=== PATIENT | female | born 1975 | race Hispanic/Latino ===

== ENCOUNTER 2022-12-20 14:51 | Emergency (ER) | payer OTHER ==
[2022-12-20 15:42] LABS: Hematocrit 42.2 % (36.0-45.0); Lymphocytes % 29.9 % (15.3-44.8); MCV 88.6 fL (80-100); MPV 9.4 fL (7.6-11.3); RBC Red Blood Cell Count 4.76 M/uL (3.86-4.86)
[2022-12-20 15:52] LABS: BUN Blood Urea Nitrogen 11 mg/dL (7-18); Bicarbonate 31 mEq/L (21-32); Glomerular Filtration Rate 110 ml/min (=/>90); Glucose Level 92 mg/dL (74-106); Sodium Level 139 mEq/L (136-145)
[2022-12-20 15:53] LABS: Troponin High Sensitivity < 3.0 pg/mL (<58.9)
--- NOTE | 2022-12-20 16:35 | RAD REPORT ---
EXAM DESCRIPTION: [place] Single View12/20/2022 4:24 pm CLINICAL HISTORY: CHEST PAIN COMPARISON: No comparisons TECHNIQUE: Portable AP view of the chest. FINDINGS: The lungs are clear. No pneumothorax or effusion. The cardiomediastinal contours are unre markable. IMPRESSION: No acute cardiopulmonary process.
--- NOTE | 2022-12-20 16:48 | ER ---
Nurse's Notes [facility] Name: Amber Bradford Age: 47 yrs Sex: Female : 1975 Arrival Date: 12/20/2022 Time: 14:51 Bed IW2 Private MD: Diagnosis: Chest pain, unspecified Presentation: 12/20 15:04 Chief complaint: Patient states: HEADACHE, NECK PAIN AND DIZZINESS SINCE WAKING. ss Coronavirus screen: At this time, the client does not indicate any symptoms associated with coronavirus-19. Ebola Screen: No symptoms or risks identified at this time. Initial Sepsis Screen: Does the patient meet any 2 criteria? No. Patient's initial sepsis screen is negative. Does the patient have a suspected source of infection? No. Patient's initial sepsis screen is negative. Risk Assessment: Do you want to hurt yourself or someone else? Patient reports no desire to harm self or others. Onset of symptoms was December 20, 2022. 15:04 Method Of Arrival: Ambulatory ss 15:04 Acuity: YUSUF 3 Triage Assessment: 15:05 General: Appears in no apparent distress. Behavior is cooperative, appropriate for age, ss anxious. Pain: Complains of pain in head and chest. EENT: No deficits noted. Neuro: No deficits noted. Cardiovascular: Reports chest pain. Respiratory: No deficits noted. GI: No signs and/or symptoms were reported involving the gastrointestinal system. : No signs and/or symptoms were reported regarding the genitourinary system. Derm: No deficits noted. Musculoskeletal: No deficits noted. Historical: - Allergies: 15:05 No Known Allergies; ss - Home Meds: 15:05 [place] Thyroid Oral [Active]; Mounjaro 5 mg/0.5 mL subcutaneous Pen Injector every week ss [Active]; - PSHx: 15:05 Cholecystectomy; tubal; ss - Immunization history:: Adult Immunizations up to date. - Social history:: Smoking status: Patient denies any tobacco usage or history of. Screenin:55 [facility] ED Fall Risk Assessment (Adult) History of falling in the last 3 months, bp including since admission No falls in past 3 months (0 pts). Abuse screen: Denies threats or abuse. Denies injuries from another. Nutritional screening: No deficits noted. Tuberculosis screening: No symptoms or risk factors identified. Assessment: 16:55 Reassessment: DC HOME AMBULATORY. bp Vital Signs: 15:04 BP 118 / 65; Pulse 75; Resp 16; Temp 98; Pulse Ox 100% ; Weight 86.64 kg; Height 5 ft. ss 7 in. ; 15:04 Body Mass Index 29.91 (86.64 kg, 170.18 cm) ED Course: 14:54 Patient arrived in ED. im 14:58 Johnny Fu MD is Attending Physician. bs3 15:05 Triage completed. ss 15:05 Arm band placed on. ss 16:26 XRAY Chest (1 view) In Process Unspecified. EDMS 16:47 Girish Cochran MD is Referral Physician. bs3 16:55 Ryley Beckett, RN is Primary Nurse. bp 16:55 Patient has correct armband on for positive identification. Cardiac monitoring not bp applicable on this patient. 16:55 No provider procedures requiring assistance completed. IV discontinued, intact, bp bleeding controlled, No redness/swelling at site. Pressure dressing applied. Patient maintains SpO2 saturation greater than 95% on room air. Administered Medications: No medications were administered Medication: 16:55 VIS not applicable for this client. bp Outcome: 16:48 Discharge ordered by . bs3 16:55 Discharged to home ambulatory. bp 16:55 Condition: stable 16:55 Discharge instructions given to patient, Instructed on discharge instructions, follow up and referral plans. Demonstrated understanding of instructions, follow-up care. 16:56 Patient left the ED. bp Signatures: Dispatcher [employer] EDIN Sasha Morales RN RN Ryley Beckett RN RN bp Johnny Fu MD MD bs3 Afshan Jc im
--- NOTE | 2022-12-20 16:48 | EDPHYS ---
Physician Documentation [facility] Name: Amber Bradford Age: 47 yrs Sex: Female : 1975 Arrival Date: 12/20/2022 Time: 14:51 Bed IW2 Private MD: ED Physician Johnny Fu HPI: 12/20 15:07 This 47 yrs old Female presents to ER via Ambulatory with complaints of Chest bs3 Pain. 15:07 47-year-old female history of thyroid dysfunction history of diabetes presents with bs3 left-sided arm/shoulder pain as well as a slight chest discomfort she denies any associated nausea vomiting diaphoresis she notes that the pain is mild in intensity with started when she woke up this morning she also has a slight headache which she was not terribly concerned about but she got concerned about her symptoms after googling the shoulder discomfort and came in she attempted to follow-up with her PCP but they were unable to see her she denies any shortness of breath she denies this happening over before no recent travel no immobilization no history of PE or DVT no leg swelling no ripping or tearing pain no associated numbness tingling or weakness of her extremities pain does not radiate to her back or her abdomen. Historical: - Allergies: 15:05 No Known Allergies; ss - Home Meds: 15:05 [place] Thyroid Oral [Active]; Mounjaro 5 mg/0.5 mL subcutaneous Pen Injector every week ss [Active]; - PSHx: 15:05 Cholecystectomy; tubal; ss - Immunization history:: Adult Immunizations up to date. - Social history:: Smoking status: Patient denies any tobacco usage or history of. ROS: 15:07 Constitutional: Negative for fever, chills bs3 15:07 All other systems are negative. Exam: 15:07 Constitutional: This is a well developed, well nourished patient who is awake, alert, bs3 and in no acute distress. Head/Face: Normocephalic, atraumatic. Eyes: Pupils equal round and reactive to light, extra-ocular motions intact. Lids and lashes normal. ENT: mmm, no posterior phyarngeal erythema Neck: Trachea midline, no thyromegaly, no neck stiffness Chest/axilla: Normal chest wall appearance and motion. Nontender with no deformity. No lesions are appreciated. Cardiovascular: Regular rate and rhythm with a normal S1 and S2. symmetric pulses in upper extremities Respiratory: Lungs have equal breath sounds bilaterally, clear to auscultation, no respiratory distress Abdomen/GI: Soft, non-tender, no rebound or guarding MS/ Extremity: Pulses equal, no cyanosis. Neurovascular intact. Full, normal range of motion. Normal sensation in bilateral upper extremities normal strength in bilateral upper extremities equal symmetrical pulses as above in the radial region Neuro: Awake and alert, GCS 15, oriented to person, place, time, and situation. Cranial nerves II-XII grossly intact. Motor strength 5/5 in all extremities. Sensory grossly intact. Psych: Awake, alert, with orientation to person, place and time. Behavior, mood, and affect are within normal limits. 15:19 EKG is normal sinus rhythm [address] elevation or depression QTc 416 as interpreted by bs3 myself Vital Signs: 15:04 BP 118 / 65; Pulse 75; Resp 16; Temp 98; Pulse Ox 100% ; Weight 86.64 kg; Height 5 ft. ss 7 in. ; 15:04 Body Mass Index 29.91 (86.64 kg, 170.18 cm) ss MDM: 14:58 Patient medically screened. bs3 15:07 HEART Score: History: Slightly Suspicious (0), ECG: Age: > 45 and < 65 years (1), Risk bs3 Factors: 1 or 2 risk factors (1), Troponin: < or = 1 x Normal Limit (0), Total Score = 2. Data reviewed: vital signs, nurses notes. 15:07 ED course: History and physical not consistent with pulmonary embolism or aortic bs3 dissection will evaluate for ACS given duration of symptoms a single troponin should rule this out she is anxious regarding her symptoms and there may be a component of anxiety which she does endorse she does not want treatment for her headache or her pain. 16:40 ED course: Troponin negative work-up nondiagnostic advised outpatient follow-up. bs3 12/20 15:30 Order name: Basic Metabolic Panel; Complete Time: 16:40 EDMS 12/20 15:30 Order name: Troponin High Sensitivity; Complete Time: 16:40 EDMS 12/20 15:30 Order name: CBC with Automated Diff; Complete Time: 16:40 EDMS 12/20 14:59 Order name: XRAY Chest (1 view); Complete Time: 16:40 bs3 12/20 14:59 Order name: EKG; Complete Time: 16:10 bs3 12/20 14:59 Order name: Cardiac monitoring; Complete Time: 15:39 bs3 12/20 14:59 Order name: EKG - Nurse/Tech; Complete Time: 15:39 bs3 12/20 14:59 Order name: IV Saline Lock; Complete Time: 15:39 bs3 12/20 14:59 Order name: Labs collected and sent; Complete Time: 15:39 bs3 12/20 14:59 Order name: O2 Per Protocol; Complete Time: 15:39 bs3 12/20 14:59 Order name: O2 Sat Monitoring; Complete Time: 15:39 bs3 Administered Medications: No medications were administered Disposition Summary: 12/20/22 16:48 Discharge Ordered Location: Home bs3 Problem: new bs3 Symptoms: have improved bs3 Condition: Stable bs3 Diagnosis - Chest pain, unspecified bs3 Followup: bs3 - With: Private Physician - When: 1 week - Reason: Re-evaluation by your physician Followup: bs3 - With: Girish Cochran MD - When: 1 week - Reason: Re-evaluation by your physician Discharge Instructions: - Discharge Summary Sheet bs3 - Nonspecific Chest Pain, Adult bs3 Forms: - Medication Reconciliation Form bs3 - Thank You Letter bs3 - Antibiotic Education bs3 - Prescription Opioid Use bs3 - [email or web address] bs3 Signatures: Dispatcher [employer] EDMS Sasha Morales RN RN Johnny Mao MD MD bs3 Corrections: (The following items were deleted from the chart) 16:26 16:10 BASIC METABOLIC PANEL+C.LAB.BRZ ordered. EDMS EDMS 16:26 16:10 Troponin High Sensitivity+C.LAB.BRZ ordered. EDMS EDMS 16:34 16:10 CBC+H.LAB.BRZ ordered. EDMS EDMS
[2022-12-20 17:01] VITALS: BP 118/65; TEMP 98; O2SAT 100
--- NOTE | 2022-12-21 18:11 | EKG ---
Test Date: 2022-12-20 Test Time: 15:15:43 University Administrator: BERENICE MEASUREMENT RESULTS: Intervals: Rate: 65 LA: 140 QRSD: 74 QT: 400 QTc: 416 [place]: P: 46 LA: 140 QRS: 41 T: 72 INTERPRETIVE STATEMENTS: Normal sinus rhythm Low voltage QRS Borderline ECG No previous ECG available for comparison Electronically Signed On 12-21-22 18:08:56 CDT by Girish Cochran
== END 2022-12-20 16:56 | disposition home or self-care (01) ==
LOC: ER 14:51
DX: R07.9 Chest pain, unspecified (principal)
CPT/HCPCS: 36415; 71045; 80048; 84484; 85025; 93005